=== PATIENT | female | born 1955 | race Two or more races ===

== ENCOUNTER 2022-03-24 16:21 | Inpatient (IN) | payer SELFPAY ==
[~2022-03-24] VITALS: Ht 157.5 cm; Wt 58.1 kg
[2022-03-24] MEDS ORDERED: PANTOPRAZOLE SODIUM 40 MG/VIAL IV STA (17:29)
[2022-03-24] MEDS ORDERED: SODIUM CHLORIDE 0.9% 1,000 ML IV ONE (17:30)
[2022-03-24 17:47] LABS: BASOPHILS % 0.7 % (0.0-2.0); HEMATOCRIT. 26.5 % (36.0-48.0); LYMPHOCYTES % 23.3 % (20.0-50.0); MEAN CORPUSCULAR HEMOGLOBIN 20.1 pg (28.0-32.0); MEAN CORPUSCULAR VOLUME 66.7 fL (81.0-99.0); MEAN PLATELET VOLUME 8.6 fl (7.4-10.4); MONOCYTES % 7.6 % (2.0-8.0); NEUTROPHILS % 66.4 % (40.0-76.0); PLATELET 360 x1000/uL (130-400); RED BLOOD CELL COUNT 3.98 mill/uL (4.2-5.4)
[2022-03-24 17:55] LABS: CHLORIDE 123 mEq/L (98-107)
[2022-03-24 17:56] LABS: PROTHROMBIN TIME 11.2 sec (9.6-11.0)
[2022-03-24] MEDS ORDERED: POTASSIUM CHLORIDE INJ 40 MEQ in DEXT 5% WATER 250 ML IV ONE (18:00)
[2022-03-24 18:22] LABS: PLATELET ESTIMATE NORMAL
[2022-03-24] MEDS ORDERED: CALCIUM GLUCONATE 100MG/ML 10ML VIAL IV ONE (18:30)
[2022-03-24] MEDS ORDERED: CALCIUM GLUCONATE IV NR (18:45)
[2022-03-24] MEDS ORDERED: WATER IV NR (18:45)
[2022-03-24] MEDS ORDERED: DEXTROSE 5% IV NR (18:45)
[2022-03-24] MEDS ORDERED: IOHEXOL-300 100 ML BOTTLE ONE (19:10)
[2022-03-24] MEDS: KCL 20MEQ/100ML X 2 FOR TOTAL KCL 40MEQ/200ML IV SCH ×2 (19:42→20:30)
[2022-03-24] MEDS ORDERED: METRONIDAZOLE 500 MG PREMIX 100 ML IV NR (20:15)
[2022-03-24] MEDS ORDERED: CEFTRIAXONE 1 G PREMIX 50 ML IV NR ×2 (20:15→21:32)
[2022-03-25] MEDS ORDERED: MAGNESIUM/ALUMINUM HYDROXIDE/SIMETHICONE 30ML UDC PO PRN
[2022-03-25] MEDS ORDERED: GUAIFENESIN 200MG/10ML SUGAR FREE UDC PO PRN
[2022-03-25] MEDS ORDERED: HYDROCODONE/ACETAMINOPHEN 5/325MG TABLET PO PRN
[2022-03-25] MEDS ORDERED: DOCUSATE SODIUM 100MG CAPSULE PO PRN
[2022-03-25] MEDS ORDERED: DIPHENHYDRAMINE 50MG/ML VIAL IV PRN
[2022-03-25] MEDS ORDERED: LORAZEPAM 2MG/ML CPJ IV PRN
[2022-03-25] MEDS ORDERED: ONDANSETRON HCL 4MG/2ML INJ IV PRN
[2022-03-25] MEDS ORDERED: ACETAMINOPHEN 325MG TABLET PO PRN
[2022-03-25] MEDS ORDERED: MORPHINE SULFATE 2 MG/ML CPJ (NOT FOR IM USE) IV PRN
[2022-03-25] MEDS ORDERED: IPRATROPIUM/ALBUTEROL 0.5-3(2.5)MG/3ML NEB NEB PRN
[2022-03-25] MEDS ORDERED: NA PHOS,M-B/NA PHOS,DI-BA ENEMA 118ML PR PRN
[2022-03-25] MEDS ORDERED: CLONIDINE 0.1MG TABLET PO PRN
[2022-03-25] MEDS ORDERED: NALOXONE HCL 0.4 MG/ML 1ML VIAL IV PRN (00:15)
[2022-03-25 00:22] LABS: CHLORIDE 114 mEq/L (98-107)
[2022-03-25] MEDS: DEXT 5%/0.45% NACL 1000ML 1,000 ML IV SCH ×2 (02:17→13:53)
[2022-03-25 06:18] LABS: BASOPHILS % 0.6 % (0.0-2.0); EOSINOPHILS % 0.2 % (0.0-5.0); HEMATOCRIT. 29.5 % (36.0-48.0); HEMOGLOBIN. 9.4 g/dL (12.0-16.0); LYMPHOCYTES % 16.4 % (20.0-50.0); MEAN CORPUSCULAR HEMOGLOBIN 21.1 pg (28.0-32.0); MEAN CORPUSCULAR VOLUME 66.1 fL (81.0-99.0); MEAN PLATELET VOLUME 8.5 fl (7.4-10.4); MONOCYTES % 6.9 % (2.0-8.0); NEUTROPHILS % 75.9 % (40.0-76.0); PLATELET 359 x1000/uL (130-400); RED BLOOD CELL COUNT 4.46 mill/uL (4.2-5.4); RED CELL DISTRIBUTION WIDTH 24.8 % (11.6-14.6)
[2022-03-25] MEDS: PANTOPRAZOLE SODIUM 40 MG/VIAL IV SCH ×2 (11:47→22:21)
[2022-03-25 19:57] LABS: HEMATOCRIT 28.3 % (36.0-48.0); HEMOGLOBIN 9.1 g/dL (12.0-16.0)
[2022-03-25 20:00] VITALS: BP 137/67
[2022-03-25] MEDS: SUCRALFATE 1 G/10 ML UDC PO SCH ×2 (21:00→22:22)
[2022-03-25 22:00] VITALS: BP 144/88
[2022-03-25] MEDS: METOCLOPRAMIDE HCL 10MG/2ML VIAL IV SCH (22:22)
[2022-03-26] VITALS (10 sets, daily range): BP systolic 114–164; BP diastolic 56–94
[2022-03-26 00:49] LABS: HEMOGLOBIN 8.1 g/dL (12.0-16.0)
[2022-03-26 01:01] LABS: TOTAL IRON BINDING CAPACITY 398 ug/dL (250-450)
[2022-03-26 01:24] LABS: FERRITIN 13 ng/mL (10-291)
[2022-03-26] MEDS ORDERED: LISI20TA31 PO (01:53)
[2022-03-26 02:10] LABS: VITAMIN B12 SERUM 288 pg/mL (211-911)
[2022-03-26] MEDS: DEXT 5%/0.45% NACL 1000ML 1,000 ML IV SCH ×2 (02:15→16:03)
[2022-03-26 02:16] LABS: FOLIC ACID (FOLATE) SERUM > 20.00 ng/mL (>5.38)
[2022-03-26] MEDS: METOCLOPRAMIDE HCL 10MG/2ML VIAL IV SCH ×6 (06:20→23:13)
[2022-03-26] MEDS: SUCRALFATE 1 G/10 ML UDC PO SCH ×5 (07:30→21:10)
[2022-03-26 07:43] LABS: HEMATOCRIT 25.7 % (36.0-48.0); HEMOGLOBIN 8.3 g/dL (12.0-16.0)
[2022-03-26] MEDS: PANTOPRAZOLE SODIUM 40 MG/VIAL IV SCH ×2 (08:48→21:11)
[2022-03-26 13:28] LABS: CHLORIDE 114 mEq/L (98-107)
[2022-03-26 13:31] LABS: INR 1.1; PROTHROMBIN TIME 11.3 sec (9.6-11.0)
[2022-03-26 13:39] LABS: BASOPHILS % 0.8 % (0.0-2.0); EOSINOPHILS % 0.6 % (0.0-5.0); HEMATOCRIT. 27.4 % (36.0-48.0); HEMOGLOBIN. 8.9 g/dL (12.0-16.0); LYMPHOCYTES % 18.6 % (20.0-50.0); MEAN CORPUSCULAR VOLUME 67.5 fL (81.0-99.0); MEAN PLATELET VOLUME 8.8 fl (7.4-10.4); MONOCYTES % 13.1 % (2.0-8.0); NEUTROPHILS % 66.9 % (40.0-76.0); PLATELET 335 x1000/uL (130-400); RED BLOOD CELL COUNT 4.06 mill/uL (4.2-5.4); RED CELL DISTRIBUTION WIDTH 25.4 % (11.6-14.6)
[2022-03-26] MEDS: CYANOCOBALAMIN 1000MCG/ML VIAL IM SCH (13:47)
[2022-03-26] MEDS ORDERED: PROPOFOL 200MG/20ML VIAL IV ONE ×2 (13:50→14:17)
[2022-03-26] MEDS ORDERED: MIDAZOLAM HCL 2 MG/2 ML VIAL ONE (13:50)
[2022-03-26] MEDS ORDERED: LIDOCAINE HCL 1% 20ML VIAL (Pyxis) INJ ONE (13:51)
[2022-03-26] MEDS ORDERED: POTASSIUM CHLORIDE 20MEQ/PACKET PO NR (16:45)
[2022-03-26] MEDS ORDERED: METOCLOPRAMIDE HCL 10MG/2ML VIAL IV SCH (17:00)
[2022-03-26] MEDS ORDERED: BISACODYL 5MG TABLET PO SCH (17:00)
[2022-03-26 17:29] LABS: HEPATITIS B SURFACE ANTIGEN NEGATIVE
[2022-03-26] MEDS ORDERED: SORBITOL 70% SOLN 30ML PO SCH (17:30)
[2022-03-26] MEDS: BISACODYL 5MG TABLET PO SCH ×3 (17:43→23:14)
[2022-03-26] MEDS: SORBITOL 70% SOLN 30ML PO SCH ×3 (17:43→23:41)
[2022-03-27] VITALS (7 sets, daily range): BP systolic 137–159; BP diastolic 76–95
[2022-03-27] MEDS ORDERED: DEXT 5%/0.45% NACL 1000ML 1,000 ML IV SCH
[2022-03-27] MEDS: BISACODYL 5MG TABLET PO SCH (02:03)
[2022-03-27] MEDS: METOCLOPRAMIDE HCL 10MG/2ML VIAL IV SCH (02:03)
[2022-03-27] MEDS: SORBITOL 70% SOLN 30ML PO SCH (02:38)
[2022-03-27 03:00] LABS: BASOPHILS % 0.8 % (0.0-2.0); EOSINOPHILS % 0.2 % (0.0-5.0); HEMATOCRIT. 30.2 % (36.0-48.0); HEMOGLOBIN. 9.7 g/dL (12.0-16.0); LYMPHOCYTES % 11.2 % (20.0-50.0); MEAN CORPUSCULAR HEMOGLOBIN 21.6 pg (28.0-32.0); MEAN CORPUSCULAR VOLUME 67.3 fL (81.0-99.0); MEAN PLATELET VOLUME 8.7 fl (7.4-10.4); MONOCYTES % 10.8 % (2.0-8.0); PLATELET 351 x1000/uL (130-400); RED BLOOD CELL COUNT 4.48 mill/uL (4.2-5.4); RED CELL DISTRIBUTION WIDTH 25.6 % (11.6-14.6)
[2022-03-27 03:11] LABS: CHLORIDE 120 mEq/L (98-107)
[2022-03-27 03:14] LABS: PROTHROMBIN TIME 11.1 sec (9.6-11.0)
[2022-03-27] MEDS: DEXT 5%/0.45% NACL 1000ML 1,000 ML IV SCH (06:10)
[2022-03-27] MEDS: PANTOPRAZOLE SODIUM 40 MG/VIAL IV SCH (08:33)
[2022-03-27] MEDS: SUCRALFATE 1 G/10 ML UDC PO SCH ×3 (08:33→16:12)
[2022-03-27] MEDS: CYANOCOBALAMIN 1000MCG/ML VIAL IM SCH (08:33)
[2022-03-27] MEDS ORDERED: SIMETHICONE 40 MG/0.6 ML 15ML ONE (12:34)
[2022-03-27] MEDS ORDERED: PROPOFOL 200MG/20ML VIAL IV ONE (12:45)
[2022-03-27] MEDS ORDERED: DEXTROSE 5% WATER 1,000 ML IV ONE ×2 (14:00)
[2022-03-28] MEDS ORDERED: DEXT 5%/0.45% NACL 1000ML 1,000 ML IV SCH
[2022-03-29 06:10] LABS: HGB A2 1.9 % (1.8-3.2)
== END 2022-03-27 22:37 | disposition home or self-care (01) | DRG 241 ==
LOC: ER 16:21 → MICUSO 20:33 → 5EST 03-25 20:00 → 3WST 03-27 14:19
PROVIDERS: ADMIT Internal Medicine; ATTEND Internal Medicine
PROC: 0DB78ZX Excision of Stomach, Pylorus, Via Natural or Artificial Opening Endoscopic, Diagnostic (ICD-10-PCS; principal; 2022-03-23)
PROC: 30233N1 Transfusion of Nonautologous Red Blood Cells into Peripheral Vein, Percutaneous Approach (ICD-10-PCS; 2022-03-24)
PROC: 0DJD8ZZ Inspection of Lower Intestinal Tract, Via Natural or Artificial Opening Endoscopic (ICD-10-PCS; 2022-03-26)
DX: K29.71 Gastritis, unspecified, with bleeding (principal); G93.41 Metabolic encephalopathy; K52.9 Noninfective gastroenteritis and colitis, unspecified; D62 Acute posthemorrhagic anemia; E86.0 Dehydration; D50.9 Iron deficiency anemia, unspecified; K29.81 Duodenitis with bleeding; I95.9 Hypotension, unspecified; D25.9 Leiomyoma of uterus, unspecified; E87.6 Hypokalemia; I10 Essential (primary) hypertension; Z20.822 Contact with and (suspected) exposure to COVID-19; I25.10 Atherosclerotic heart disease of native coronary artery without angina pectoris; S01.511A Laceration without foreign body of lip, initial encounter; X58.XXXA Exposure to other specified factors, initial encounter; Y93.89 Activity, other specified; Y92.89 Other specified places as the place of occurrence of the external cause; Y99.8 Other external cause status
CPT/HCPCS: 36415; 74177; 76700; 80048; 80053; 80061; 82270; 82607; 82728; 82746; 82962; 83021; 83036; 83540; 83550; 83605; 84484; 85014; 85018; 85025; 85044; 85660; 86256; 86705; 86709; 86803; 86850; 86900; 86920; 87340; 87426; 88305; 88312; 88313; 93005; 93306; 99291; C9113; J0610; J0696; J2250; J2704; J2765; J3420; J3480; J3490; J7030; J7060; P9016; Q9967; A4315